=== PATIENT | female | born 1965 ===

== ENCOUNTER 2018-04-07 19:28 | Inpatient (IN) | payer MEDICARE ==
--- NOTE | 2018-04-07 20:45 | ED PDOC ---
HPI: Psych/Substance Abuse Time Seen by Provider: 04/07/18 19:47 Chief Complaint (Nursing): Psychiatric Evaluation Chief Complaint (Provider): depression History/Exam Limitations: no limitations Onset/Duration Of Symptoms: Gradual (2 days) Additional Complaint(s): pt reports feeling upset when she got into argument with family member. When asked if she is suicidal she reports she does not know. Denies homicidal ideations or hallucinations. Past Medical History Reviewed: Historical Data, Nursing Documentation, Vital Signs Vital Signs: Last Vital Signs Temp 98.9 F 04/07/18 19:33 Pulse 79 04/07/18 19:33 Resp 16 04/07/18 19:33 BP 143/90 04/07/18 19:33 Pulse Ox 97 04/07/18 19:33 - Medical History PMH: Anemia, Bipolar Disorder, Depression, Hypothyroidism - Surgical History Surgical History: Cholecystectomy, Other surgeries: Gastric bypass - Family History Family History: States: Unknown Family Hx - Social History Drugs: Denies - Home Medications Home Medications: Ambulatory Orders Medication Instructions Recorded Levothyroxine [Synthroid] 75 mcg PO DAILY 04/07/18 Oxycodone HCl/Acetaminophen 1 each PO BID 04/07/18 [Percocet 10-325 mg Tablet] Quetiapine Fumarate [Quetiapine 400 mg PO HS 04/07/18 Fumarate ER] Ranitidine HCl [Zantac] 150 mg PO DAILY 04/07/18 Temazepam [Restoril] 15 mg PO HS 04/07/18 Trazodone HCl 150 mg PO HS 04/07/18 clonazePAM [Klonopin] 1 mg PO BIDHS 04/07/18 Citalopram [celEXA] 40 mg PO DAILY 04/08/18 Citalopram [celEXA] 20 mg PO DAILY tab 04/09/18 QUEtiapine [SEROquel] 400 mg PO HS tab 04/09/18 Temazepam [Restoril] 15 mg PO HS cap 04/09/18 clonazePAM [Klonopin] 1 mg PO BID tab 04/09/18 lamoTRIgine [Lamictal] 25 mg PO DAILY tab 04/09/18 lamoTRIgine [Lamictal] 100 mg PO DAILY tab 04/09/18 traZODone [Desyrel] 150 mg PO HS tab 04/09/18 - Allergies Allergies/Adverse Reactions: Allergies Allergy/AdvReac Type Severity Reaction Status Date / Time buspirone [From BuSpar] Allergy SHORTNESS Verified 04/08/18 02:38 OF BREATH Review of Systems ROS Statement: Except As Marked, All Systems Reviewed And Found Negative (and as per HPI) Psych: Positive for: Anxiety, Depression Physical Exam - Reviewed Nursing Documentation Reviewed: Yes Vital Signs Reviewed: Yes - Physical Exam Appears: Positive for: Non-toxic, In Acute Distress (psychiatric distress, tearful) Head Exam: Positive for: ATRAUMATIC, NORMOCEPHALIC Skin: Positive for: Warm, Dry Eye Exam: Positive for: EOMI, PERRL ENT: Negative for: Pharyngeal Erythema, Tonsillar Exudate Neck: Positive for: Painless ROM, Supple Cardiovascular/Chest: Positive for: Regular Rate, Rhythm. Negative for: Murmur Respiratory: Positive for: Normal Breath Sounds. Negative for: Wheezing Gastrointestinal/Abdominal: Positive for: Soft. Negative for: Tenderness Back: Positive for: Normal Inspection. Negative for: Decreased ROM Extremity: Positive for: Normal ROM. Negative for: Deformity Lymphatic: Negative for: Adenopathy Neurologic/Psych: Positive for: Alert, Oriented (x3), Mood/Affect (sad and anxious mood and depressed affect). Negative for: Motor/Sensory Deficits - Laboratory Results Result Diagrams: 04/07/18 22:15 04/07/18 22:15 - ECG O2 Sat by Pulse Oximetry: 97 Pulse Ox Interpretation: Normal - Progress ED Course And Treament: Evaluated by CW and pt to be hospitalized for psychiatric stabilization Pt is medically stable for inpatient psychiatric admission Disposition - Clinical Impression Clinical Impression: Depression - Disposition Disposition Time: 23:30 Condition: STABLE - Pt Status Changed To: Hospital Disposition Of: Inpatient - Admit Certification Admit to Inpatient:: After my assessment, the patient will require hospitalization for at least two midnights. This is because of the severity of symptoms shown, intensity of services needed, and/or the medical risk in this patient being treated as an outpatient. - POA Present On Arrival: None
[2018-04-07 22:35] LABS: BASO # 0.1 K/uL (0.0-0.2); EOS # 0.1 K/uL (0.0-0.7); EOS % 0.8 % (0.0-4.0); HEMOGLOBIN 10.1 g/dL (12.0-16.0); LYMPH # 3.3 K/uL (1.0-4.3); LYMPH % 50.5 % (20.0-40.0); MEAN CELL VOLUME 75.2 fl (81.0-99.0); MEAN CORPUSCULAR HEMOGLOBIN 23.5 pg (27.0-31.0); MEAN CORPUSCULAR HGB CONC 31.2 g/dL (33.0-37.0); MEAN PLATELET VOLUME 7.7 fl (7.2-11.7); MONO # 0.3 K/uL (0.0-0.8); MONO % 4.4 % (0.0-10.0); NEUT # 2.9 K/uL (1.8-7.0); NEUT % 43.3 % (50.0-75.0); NRBC % 0.1 % (0.0-0.0); RBC 4.28 Mil/uL (3.80-5.20); RED CELL DISTRIBUTION WIDTH 17.4 % (11.5-14.5); WHITE BLOOD COUNT 6.6 K/uL (4.8-10.8)
[2018-04-07 22:48] LABS: ALB/GLOB RATIO 1.1 (1.0-2.1); ALBUMIN 4.1 g/dL (3.5-5.0); ALT/SGPT 26 U/L (9-52); AST/SGOT 42 U/L (14-36); BLOOD UREA NITROGEN 9 mg/dl (7-17); CALCIUM 9.2 mg/dL (8.4-10.2); GFR AFRICAN-AMERICAN > 60; GFR NON-AFRICAN AMERICAN > 60
[2018-04-07 22:49] LABS: SALICYLATE < 1.0 mg/dl
[2018-04-07 23:00] LABS: BARBITURATES, UR NEGATIVE (NEGATIVE); BENZODIAZEPINES, UR NEGATIVE (NEGATIVE); OPIATES, UR NEGATIVE (NEGATIVE); PHENCYCLIDINE, UR NEGATIVE (NEGATIVE)
[2018-04-08] MEDS ORDERED: Alum-Mag Hydrox-Simethicone Susp (30 mL) PO PRN (00:52)
[2018-04-08] MEDS ORDERED: Magnesium Hydroxide Susp 30 ml UD PO PRN (00:52)
[2018-04-08] MEDS ORDERED: DiphenhydrAMINE 50 mg/ml Inj IM PRN (00:52)
--- NOTE | 2018-04-08 01:01 | PCM.BM ---
<Racquel Rico - Last Filed: 04/08/18 01:01> Treatment Plan Problems - Problems identified on initial assessmt Hopelessness/Helplessness Date Initiated: 04/08/18 Time Initiated: 01:01 Assessment reference: NA Status: Active Treatment assets and liabiliti Patient Assests: cooperative, educated, ADL independent, negotiates basic needs , cognitively intact Patient Liabilities: live alone, financial problems, poor support system, relationship conflicts, language/speech - Milieu Protocol Maintain good personal hygiene: daily Encourage regular showers, daily Remind patient to perform daily oral care, daily Assist patient to perform ADL's Conduct patient checks and document Observation sheet: Q15 minutes Maintain personal safety: every shift Educate patient to report safety concerns to staff, every shift Monitor environment for contraband/sharps Medication safety: Monitor for expected outcome, potential side effects: every shift, Assess barriers to learning: every shift, Assess readiness for medication education: every shift <Meaghan Noel - Last Filed: 04/09/18 11:06> - Diagnosis (1) Depression Status: Acute Interventions: psychotherapy , pharmacotherapy 04/09/18 11:06 <Dary Ma - Last Filed: 04/09/18 13:38> Treatment assets and liabiliti Patient Assests: adapts well, cooperative, educated, resourceful, self-reliant, ADL independent, negotiates basic needs, cognitively intact Patient Liabilities: live alone (homeless), financial problems, poor support system, relationship conflicts, medical problems, language/speech Family Contact Family involvement: Family/SO is involved Family contact: Patient agrees to contact, Family has been contacted by patient , Telephone contact initiated by staff Family contact name: Tammi [phone] Family contact comment: Intellectual Property Legal Assistant placed call to patients daughter (Tammi ) to discuss patients progress on 3NP and anticipated AMA discharge of 04/09. Intellectual Property Legal Assistant notified family that patient was encouraged to remain on 3NP for further medication management but pt. declined. Intellectual Property Legal Assistant explained that due to lack of acute psychiatric sxs, pt. is not considered a risk to self or others and is not appropriate for screening and will be discharged AMA. Importance of compliance with medications and aftercare ([facility]) emphasized. Pts daughter expressed understanding of the above and denied having concerns regarding pts discharge, stating She goes through some depression sometimes but comes out of it. It passed. Shes okay. Daughter confirmed that pt. will be allowed back in the home during the day. - Outside Agency Agency 1 Care involvment: Following patient during stay, Information-sharing, Other Agency contact name: [facility] Agency contact number: [phone] - Goals for Treatment Patient goals for treatment: Patient to continue stabilization on 3NP through medication management and group/supportive therapy to address sxs of depression and eliminate SI. Patient to be encouraged to attend groups regularly to promote self-awareness, compliance, sobriety and improve insight, coping skills and self-esteem. Patient to be provided with referral for appropriate level of aftercare to reduce risk of future hospitalizations and ensure safety in the community. Discharge/Continuing Care - Education Needs Education Needs: Family Medication, Family Aftercare Safety Plan, Patient Medication, Patient Coping Skills, Patient Community resources, Patient Aftercare Safety Plan - Discharge Discharge Criteria: Tolerates medication w/o severe side effects, Free of Suicidal thoughts, Normal sleep pattern, Ability to care for self, Reduction of target symptoms Discharge to:: [facility] - Treatment Team Participation Patient/Family/SO Statement: 04/09/18 13:38 Patient attended tx team on the morning of 04/08 and was able to engage in discussion regarding progress on 3NP and tx goals. Pt. depressed but calm and cooperative. Intellectual Property Legal Assistant served as an traveling engineer and necessary collateral information was obtained. Pt. AOX4 with constricted affect and fair eye contact. Pt. appropriately tearful when discussing homelessness and discord with family. Thoughts: clear and connected. Speech: somewhat hyperverbal. Pt. denied SI/HI and was able to contract for safety on 3NP. Pt. visible on 3NP and observed socializing appropriately with peers. Risks of inappropriate high dosages of medication and benefits of consolidating medication regimen explained. Pt. easily irritable and resistant to recommended medication changes , explaining that current medication regimen has been the most successful. Pt. requested to return to [facility] upon d/c and provided consent for bond underwriter to contact daughter. Discussed with Family/SO: Yes Was Patient/Family/SO present at Treatment Team Meeting: Yes
--- NOTE | 2018-04-08 08:32 | RAD ---
HISTORY: depression COMPARISON: No prior. FINDINGS: LUNGS: Particular tissue left perihilar region with remaining lung richardson clear. No alveolar disease bilaterally. PLEURA: No significant pleural effusion identified, no pneumothorax apparent. CARDIOVASCULAR: Normal. OSSEOUS STRUCTURES: No significant abnormalities. VISUALIZED UPPER ABDOMEN: Normal. OTHER FINDINGS: Bilateral breast implantation incidentally noted. IMPRESSION: Limited fibrotic changes at the left perihilar region. There is an cyst may reflect limited atypical interstitial pulmonary disease. Clinically correlate further. No acute cardiovascular disease appreciable.
[2018-04-08 09:13] VITALS: RESP 18
[2018-04-08 10:00] LABS: T4 3.88 ug/dl (5.5-11.0)
[2018-04-08] MEDS ORDERED: Pneumococcal 23-Valent Vaccine IM ONE (10:00)
--- NOTE | 2018-04-08 12:30 | CP.PCM.CON ---
History of Present Illness - History of Present Illness History of Present Illness: 52 y/o female with PMH Bipolar disorder,Hypothyroidism, Anemia, low calcium levels , osteoporosis?, history gastric bypass surgery in 2006 brought for crisis eval for symptoms of depression, feeling tearful, helpless and suicidal . History obtained from patient . As per patient she has been diagnosed with bipolar disorder a long time ago and has been on multiple medications and currently was taking, Trazodone, Celexa, Clonipine ,lamictal. She states that is very compliant with her meds . As per patient she merida a conflict with er daughter over some bank account and she started feeling very depressed , helpless, sad and was seen crying in retirement. She was brought to ER for crisis eval.Denies suicidal ideation at present but has history of 7 prior attempts and 3 prior hospitalizations.Denies any hallucinations. Medicine consult called for medical management. She denies any chest pain , SOB , palpitations, PND, orthopnea, urinary symptoms, abdominal pain, weight gain or weight loss. She has history of hypothyroidism and recently was found to have uncontrolled hypothyroidism and Synthroid dose was increased to 88 mcg States that has multiple herniated discs in the cervical and lumbar spine and takes Percoset PRn for pain Allergies : Buspirone PMH ; Bipolar disorder,Hypothyroidism, Anemia, low calcium , multiple fractures -- ledrt distal radius fracture, right hand fifth finger fracture, right ankle and left foot fracture ?/ Medications; See med rec Surgery :c- section x 2, Cholecystectomy, gastric bypass surgery in 2006 Family history ; None Social history ; originally from [place], Lives in [facility] , has 3 children, denies any smoking, ETOH or drug abuse, disabled , single ROS ;complains of neck, shoulder pain Review of Systems - Review of Systems All systems: reviewed and no additional remarkable complaints except Past Patient History - Infectious Disease Hx of Infectious Diseases: None - Tetanus Immunizations Tetanus Immunization: Unknown - Past Medical History & Family History Past Medical History?: Yes - Past Social History Smoking Status: Unknown If Ever Smoked Chewing Tobacco Use: No Cigar Use: No Alcohol: Occasional Drugs: Denies Home Situation {Lives}: Homeless Domestic Violence: Negative - CARDIAC Hx Cardiac Disorders: No Hx Hypertension: No - PULMONARY Hx Respiratory Disorders: No Hx Tuberculosis: No - NEUROLOGICAL Hx Seizures: Yes (after stopping Xanax abruptly at age 46) - HEENT Hx Glaucoma: Yes (R eye) Other/Comment: L eye Myopia - RENAL Hx Chronic Kidney Disease: No - ENDOCRINE/METABOLIC Hx Endocrine Disorders: No Hx Hypothyroidism: Yes - HEMATOLOGICAL/ONCOLOGICAL Hx Blood Disorders: No - INTEGUMENTARY Hx Dermatological Problems: No - MUSCULOSKELETAL/RHEUMATOLOGICAL Hx Musculoskeletal Disorders: Yes Hx Fractures: Yes (L Wrist Fx, R washer hand digit Fx 2017, Fx both ankles) Hx Osteoporosis: Yes - GASTROINTESTINAL Hx Gall Bladder Disease: Yes Hx Gastroesophageal Reflux: Yes - GENITOURINARY/GYNECOLOGICAL Hx Genitourinary Disorders: No Hx Sexually Transmitted Disorders: No - PSYCHIATRIC Hx Anxiety: Yes Hx Bipolar Disorder: Yes Hx Depression: Yes Hx Substance Use: No - SURGICAL HISTORY Hx Section: Yes (x 2) Hx Cholecystectomy: Yes Hx Gastric Bypass Surgery: Yes (2006) Other/Comment: Breast Reconstruction/Lift in 2007 - ANESTHESIA Hx Anesthesia: Yes Hx Anesthesia Reactions: No Hx Malignant Hyperthermia: No Has any member of the family had a problem w/ anesthesia?: No Meds Allergies/Adverse Reactions: Allergies Allergy/AdvReac Type Severity Reaction Status Date / Time buspirone [From BuSpar] Allergy SHORTNESS Verified 04/08/18 02:38 OF BREATH - Medications Medications: Current Medications Acetaminophen (Tylenol 325mg Tab) 650 mg PO Q4 PRN PRN Reason: pain level 4-7 Al Hydrox/Mg Hydrox/Simethicone (Maalox Plus 30 Ml) 30 ml PO Q4 PRN PRN Reason: Dyspepsia Diphenhydramine HCl (Benadryl) 50 mg IM Q6 PRN PRN Reason: Extrapyramidal S/S Unable PO Diphenhydramine HCl (Benadryl) 50 mg PO Q6 PRN PRN Reason: Extrapyramidal Symptoms Haloperidol (Haldol) 5 mg PO Q4 PRN PRN Reason: Agitation Haloperidol Lactate (Haldol) 5 mg IM Q4 PRN PRN Reason: Agitation, Unable to Take PO Lorazepam (Ativan) 2 mg IM Q4 PRN PRN Reason: Anxiety/Agitation,Unable PO Lorazepam (Ativan) 2 mg PO Q4 PRN PRN Reason: Anxiety/Agitation Last Admin: 04/08/18 01:50 Dose: 2 mg Magnesium Hydroxide (Milk Of Magnesia) 30 ml PO HS PRN PRN Reason: Constipation Trazodone HCl (Desyrel) 50 mg PO HS PRN PRN Reason: for insomnia Last Admin: 04/08/18 01:50 Dose: 50 mg Physical Exam - Constitutional Appears: Non-toxic, No Acute Distress - Head Exam Head Exam: ATRAUMATIC, NORMAL INSPECTION, NORMOCEPHALIC - Eye Exam Eye Exam: EOMI, Normal appearance, PERRL Pupil Exam: NORMAL ACCOMODATION - ENT Exam ENT Exam: Mucous Membranes Moist, Normal Exam - Neck Exam Neck exam: Positive for: Full Rom, Normal Inspection - Respiratory Exam Respiratory Exam: Clear to Auscultation Bilateral, NORMAL BREATHING PATTERN. absent: Rales, Rhonchi, Wheezes - Cardiovascular Exam Cardiovascular Exam: REGULAR RHYTHM, RRR, +S1, +S2. absent: JVD - GI/Abdominal Exam GI & Abdominal Exam: Normal Bowel Sounds, Soft. absent: Distended, Guarding, Rebound, Tenderness - Rectal Exam Rectal Exam: Deferred - Extremities Exam Extremities exam: Positive for: normal capillary refill, normal inspection, pedal pulses present. Negative for: calf tenderness, pedal edema - Back Exam Back exam: NORMAL INSPECTION - Neurological Exam Neurological exam: Alert, CN II-XII Intact, Oriented x3 - Psychiatric Exam Psychiatric exam: Anxious, Flat Affect - Skin Skin Exam: Dry, Normal Color, Warm Results - Vital Signs Recent Vital Signs: Last Vital Signs Temp 98.2 F 04/08/18 09:00 Pulse 77 04/08/18 09:00 Resp 18 04/08/18 09:00 BP 149/93 H 04/08/18 09:00 Pulse Ox 99 04/07/18 23:51 - Labs Result Diagrams: 04/07/18 22:15 04/07/18 22:15 Labs: Laboratory Results - last 24 hr 04/07/18 04/07/18 04/07/18 22:15 22:15 22:15 WBC 6.6 RBC 4.28 Hgb 10.1 L Hct 32.2 L MCV 75.2 L MCH 23.5 L MCHC 31.2 L RDW 17.4 H Plt Count 325 MPV 7.7 Neut % (Auto) 43.3 L Lymph % (Auto) 50.5 H Sunflower % (Auto) 4.4 Eos % (Auto) 0.8 Baso % (Auto) 1.0 Neut # (Auto) 2.9 Lymph # (Auto) 3.3 Sunflower # (Auto) 0.3 Eos # (Auto) 0.1 Baso # (Auto) 0.1 Sodium 140 Potassium 3.9 Chloride 104 Carbon Dioxide 20 L Anion Gap 20 BUN 9 Creatinine 0.7 Est GFR ( Amer) > 60 Est GFR (Non-Af Amer) > 60 Random Glucose 127 H Calcium 9.2 Phosphorus 3.9 Magnesium 1.9 Total Bilirubin 0.2 AST 42 H ALT 26 Alkaline Phosphatase 67 Total Protein 7.9 Albumin 4.1 Globulin 3.8 Albumin/Globulin Ratio 1.1 Triglycerides Cholesterol LDL Cholesterol Direct HDL Cholesterol Thyroxine (T4) TSH 3rd Generation 7.99 H Salicylates < 1.0 Urine Opiates Screen Urine Methadone Screen Acetaminophen 10.0 Ur Barbiturates Screen Ur Phencyclidine Scrn Ur Amphetamines Screen U Benzodiazepines Scrn U Oth Cocaine Metabols U Cannabinoids Screen Alcohol, Quantitative 59 H 04/07/18 04/08/18 22:15 09:11 WBC RBC Hgb Hct MCV MCH MCHC RDW Plt Count MPV Neut % (Auto) Lymph % (Auto) Sunflower % (Auto) Eos % (Auto) Baso % (Auto) Neut # (Auto) Lymph # (Auto) Sunflower # (Auto) Eos # (Auto) Baso # (Auto) Sodium Potassium Chloride Carbon Dioxide Anion Gap BUN Creatinine Est GFR ( Amer) Est GFR (Non-Af Amer) Random Glucose Calcium Phosphorus Magnesium Total Bilirubin AST ALT Alkaline Phosphatase Total Protein Albumin Globulin Albumin/Globulin Ratio Triglycerides 73 Cholesterol 135 LDL Cholesterol Direct 48 HDL Cholesterol 55 Thyroxine (T4) 3.88 L TSH 3rd Generation 16.50 H Salicylates Urine Opiates Screen Negative Urine Methadone Screen Negative Acetaminophen Ur Barbiturates Screen Negative Ur Phencyclidine Scrn Negative Ur Amphetamines Screen Negative U Benzodiazepines Scrn Negative U Oth Cocaine Metabols Negative U Cannabinoids Screen Negative Alcohol, Quantitative Assessment & Plan - Assessment and Plan (Free Text) Assessment: 52 y/o female with PMH Bipolar disorder,Hypothyroidism, Anemia, low calcium levels , osteoporosis?, history gastric bypass surgery in 2006 brought for crisis eval for symptoms of depression, feeling tearful, helpless and suicidal . History obtained from patient . As per patient she has been diagnosed with bipolar disorder a long time ago and has been on multiple medications and currently was taking, Trazodone, Celexa, Clonipine ,lamictal. She states that is very compliant with her meds . As per patient she merida a conflict with er daughter over some bank account and she started feeling very depressed , helpless, sad and was seen crying in retirement. She was brought to ER for crisis eval.Denies suicidal ideation at present but has history of 7 prior attempts and 3 prior hospitalizations.Denies any hallucinations. Medicine consult called for medical management. She denies any chest pain , SOB , palpitations, PND, orthopnea, urinary symptoms, abdominal pain, weight gain or weight loss. She has history of hypothyroidism and recently was found to have uncontrolled hypothyroidism and Synthroid dose was increased to 88 mcg States that has multiple herniated discs in the cervical and lumbar spine and takes Percoset PRn for pain 1. Bipolar disorder with depression management as per psych TSH elevated 16.5. will need to increase Synthroid dose to 100 mcg 2. Hypothyroidism uncontrolled while on Synthroid 75 mcg TSH 16 increase dose to 100 mcg daily. patient refuses gheneric form of Levothyroxine because of severe side effects. Patient tpo take her own medication 3.Anemia chronic check iron levels given her history of gastric bypass and Vitamin B12
--- NOTE | 2018-04-08 16:03 | PCM.PSYCH ---
Initial Psychiatric Evaluation - Initial Psychiatric Evaluation Type of Admission: Voluntary Legal Status: Capacity Chief Complaint (in patient's own words): I am tired of living like that Patient's Reaction to Hospitalization: pt requested help History of Present Illness and Precipitating Events: pt is 52 ys old female with previous psychiatric diagnosis of bipolar disorder , pt has at least three previous hospitalizations and 7 suicidal attempts, she has moved from [place] since last January, pt has been following with [facility] program, for past few weeks has been feeling increasingly depressed due to increased conflict with her daughter, as a result pt had to stay in a halfway, started feeling hopeless and helpless unable to handle financial difficulties and feeling unsupported by her two daughters, on day of evaluation she started experiencing suicidal ideation with plan to overdose on medications, pt continues to be tearful and depressed on the unit with passive suicidal ideation but no active plan on the unit, reported decreased sleep and decreased appetite , denied homicidal ideation, denied substance use , Current Medications: Active Medications Generic Name Dose Route Start Last Admin Trade Name Freq PRN Reason Stop Dose Admin Acetaminophen 650 mg 04/08/18 00:52 Tylenol 325mg Tab PO Q4 PRN pain level 4-7 Al Hydrox/Mg Hydrox/Simethicone 30 ml 04/08/18 00:52 Maalox Plus 30 Ml PO Q4 PRN Dyspepsia Citalopram Hydrobromide 20 mg 04/09/18 09:00 Celexa PO DAILY KRISSY Clonazepam 1 mg 04/08/18 17:00 Klonopin PO BID KRISSY Diphenhydramine HCl 50 mg 04/08/18 00:52 Benadryl IM Q6 PRN Extrapyramidal S/S Unable PO Diphenhydramine HCl 50 mg 04/08/18 00:52 Benadryl PO Q6 PRN Extrapyramidal Symptoms Haloperidol 5 mg 04/08/18 00:52 Haldol PO Q4 PRN Agitation Haloperidol Lactate 5 mg 04/08/18 00:52 Haldol IM Q4 PRN Agitation, Unable to Take PO Lamotrigine 100 mg 04/09/18 09:00 Lamictal PO DAILY KRISSY Lamotrigine 25 mg 04/09/18 09:00 Lamictal PO DAILY KRISSY Levothyroxine Sodium 50 mcg 04/09/18 06:30 Synthroid PO DAILY@0630 KRISSY Lorazepam 2 mg 04/08/18 00:52 Ativan IM Q4 PRN Anxiety/Agitation,Unable PO Lorazepam 2 mg 04/08/18 00:52 04/08/18 01:50 Ativan PO 2 mg Q4 PRN Administration Anxiety/Agitation Magnesium Hydroxide 30 ml 04/08/18 00:52 Milk Of Magnesia PO HS PRN Constipation Quetiapine Fumarate 400 mg 04/08/18 22:00 Seroquel PO HS [facility] Temazepam 15 mg 04/08/18 22:00 Restoril PO HS KRISSY Trazodone HCl 150 mg 04/08/18 22:00 Desyrel PO HS [facility] Past Psychiatric History - Past Psychiatric History Explanation of prior treatment: multiple hospitalizations, previous suicidal attempts by overdose and trying to hang herself History of ETOH/Drug Use: denied History of Family Illness: two brothers committed suicide Pertinent Medical Hx (Current Medical&Sleep Prob, Allergies): Allergies Allergy/AdvReac Type Severity Reaction Status Date / Time buspirone [From BuSpar] Allergy SHORTNESS Verified 04/08/18 02:38 OF BREATH Levothyroxine [Synthroid] 75 mcg PO DAILY 04/07/18 Oxycodone HCl/Acetaminophen [Percocet 10-325 mg Tablet] 1 each PO BID 04/07/18 Quetiapine Fumarate [Quetiapine Fumarate ER] 400 mg PO HS 04/07/18 Ranitidine HCl [Zantac] 150 mg PO DAILY 04/07/18 Temazepam [Restoril] 15 mg PO HS 04/07/18 Trazodone HCl 150 mg PO HS 04/07/18 clonazePAM [clonAZEPAM] 1 mg PO BIDHS 04/07/18 lamoTRIgine [LaMICtal] 100 mg PO DAILY 04/07/18 Citalopram [celeXA] 40 mg PO DAILY 04/08/18 Mental Status Examination - Personal Presentation Personal Presentation: Looks older than stated age - Affect Affect: Constricted, Depressed - Motor Activity Motor Activity: Psychomotor Retardation - Reliability in Providing Information Reliability in Providing Information: Poor, due to altered mood - Speech Speech: Relevant - Mood Mood: Depressed, Anxious - Formal Thought Process Formal Thought Process: Circumstantial - Hallucinations/Delusions Additional comments: denied perceptual disturbances, non elicited - Obsessions/Compulsions Obsessions: No Compulsions: No - Cognitive Functions Orientation: Person, Place, Situation Sensorium: Alert Attention/Concentration: Attentive Judgement: Imparied, as evidence by: Poor judgement - Risk Risk: Suicidal, Diminished functioning - Strength & Assets Inventory Strength & Assets Inventory: Education, Life experience - Limitations Additional comments: poor social support DSM 5 DX - DSM 5 DSM 5 Diagnosis: bipolar I disorder MRE depressed severe - Recommended/Plan of Treatment Treatment Recommendations and Plan of Treatment: start pt on celexa 20mg , as she was on 40mg with plan to discontinue lamictal 125mg seroquel 400mg qhs temazepam 15mg qhs klonopin 1mg bid trazodone 150mg qhs CBT group and supportive therapy
--- NOTE | 2018-04-08 22:40 | CARD ---
APPROVED REPORT EKG Measurement Heart [id number] <Conclusion> Normal sinus rhythm Normal ECG
[2018-04-09] MEDS: Levothyroxine 50 MCG TAB PO SCH ×2 (06:55→06:56)
[2018-04-09] MEDS ORDERED: Levothyroxine 100 MCG TAB PO SCH (09:00)
[2018-04-09 09:32] VITALS: BP 104/62; PULSE 73; TEMP 97.2
--- NOTE | 2018-04-09 11:28 | PCM.PYCHDC ---
Mental Status Examination - Mental Status Examination Orientation: Person Memory: Intact Mood: Neutral Affect: Constricted Speech: Appropriate Attention: WNL Concentration: WNL Association: WNL Fund of Knowledge: WNL Description of patient's judgement and insight: partial insight fair judgment Psychotic Thoughts and Behaviors: pt denied any current psychotic symptoms, non elicited Suicidal Ideation: No Current Homicidal Ideation?: No Discharge Summary - Discharge Note Reason for Hospitalization: pt requested help pt is 52 ys old female with previous psychiatric diagnosis of bipolar disorder , pt has at least three previous hospitalizations and 7 suicidal attempts, she has moved from [place] since last January, pt has been following with [facility] program, for past few weeks has been feeling increasingly depressed due to increased conflict with her daughter, as a result pt had to stay in a retirement, started feeling hopeless and helpless unable to handle financial difficulties and feeling unsupported by her two daughters, on day of evaluation she started experiencing suicidal ideation with plan to overdose on medications, pt continues to be tearful and depressed on the unit with passive suicidal ideation but no active plan on the unit, reported decreased sleep and decreased appetite , denied homicidal ideation, denied substance use , Laboratory Data: Abnormal Lab Results 04/08/18 04/08/18 09:11 09:11 Hemoglobin A1c 5.6 RPR Nonreactive Consultations:: List each consultation separately and include: 1. Reason for request. 2. Findings. 3. Follow-up Summary of Hospital Course include:: 1. Description of specific treatment plan utilized for patients during their course of treatmen. 2. Summarize the time- course for resolution of acute symptoms and/or regressed behaviors. 3. Describe issues identified and worked on during hospitalization. 4. Describe medication utilized. 5. Describe medical problems identified and treated. 6. Reassessment of suicide risk Summary of Hospital Course: pt on admission was presenting with depressed mood related mainly to conflict she had with her daughter pt was replaced on her medications, with gradual increase in lamictal of 25mg , pt on second day of admission requested to be discharged against medical advise , pt denied any current suicidal or homicidal ideation , denied perceptual disturbances , non elicited ,communicated with daughter pankaj [phone], had no concerns in reference to pt current mental status pt was advised about the benefit of continuing treatment for adjusting medications , pt declined pt at current mental status not danger to self or others and will be discharged against medical advise - Diagnosis (1) Depression Current Visit: Yes Status: Acute - Final Diagnosis (DSM 5) Condition upon Discharge: FAIR DSM 5: bipolar I disorder MRE depressed Disposition: AGAINST MEDICAL ADVICE - Antipsychotic Medications Pt discharged on 2 or more routine antipsychotic medications: No
[2018-04-11 20:41] VITALS: O2SAT 97
== END 2018-04-09 12:02 | disposition left against medical advice (07) | DRG 885 ==
LOC: H.ER 19:28 → H.ERHOLD 23:02 → H.PSYCH 04-08 00:49
PROVIDERS: ADMIT Psychiatry & Neurology Psychiatry; ATTEND Psychiatry & Neurology Psychiatry
PROC: GZHZZZZ Group Psychotherapy (ICD-10-PCS; principal; 2018-04-07)
PROC: GZ56ZZZ Individual Psychotherapy, Supportive (ICD-10-PCS; 2018-04-07)
DX: F31.9 Bipolar disorder, unspecified (principal); H40.9 Unspecified glaucoma; K21.9 Gastro-esophageal reflux disease without esophagitis; M81.0 Age-related osteoporosis without current pathological fracture; Z59.0 Homelessness; Z90.49 Acquired absence of other specified parts of digestive tract; Z98.84 Bariatric surgery status; F41.9 Anxiety disorder, unspecified; K82.9 Disease of gallbladder, unspecified; R56.9 Unspecified convulsions; D64.9 Anemia, unspecified; E03.9 Hypothyroidism, unspecified

== ENCOUNTER 2018-07-21 12:59 | Emergency (ER) | payer MEDICARE ==
--- NOTE | 2018-07-21 13:33 | ED PDOC ---
HPI: Dental Pain/Injury Time Seen by Provider: 07/21/18 13:14 Chief Complaint (Nursing): Dental Pain Chief Complaint (Provider): dental pain History Per: Patient Additional Complaint(s): 53 year old female presents to the ED complaining of dental pain that radiates to her right ear and right side of her neck ongoing for 1 week. Patient reports she has an appointment with her dentist next Sunday, but due to increased pain she came to the ED. She took anaprox, Tylenol, and aspirin with minimal relief. Patient was started on levaquin for dental issues 5 days ago. She denies fever or chills. Patient is tolerating liquids and solids. 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 digit Fx 2017, Fx both ankles), Hypothyroidism, Osteoporosis, Seizures (after stopping Xanax abruptly at age 46) - Surgical History Surgical History: Cholecystectomy, - Family History Family History: States: No Known Family Hx - Social History Current smoker - smoking cessation education provided: No Alcohol: None Drugs: Denies - Home Medications Home Medications: Ambulatory Orders Medication Instructions Recorded Levothyroxine [Synthroid] 75 mcg PO DAILY 04/07/18 Oxycodone HCl/Acetaminophen 1 each PO BID 04/07/18 [Percocet 10-325 mg Tablet] Quetiapine Fumarate [Quetiapine 400 mg PO HS 04/07/18 Fumarate ER] Ranitidine HCl [Zantac] 150 mg PO DAILY 04/07/18 Temazepam [Restoril] 15 mg PO HS 04/07/18 Trazodone HCl 150 mg PO HS 04/07/18 clonazePAM [Klonopin] 1 mg PO BIDHS 04/07/18 Citalopram [celEXA] 40 mg PO DAILY 04/08/18 Citalopram [celEXA] 20 mg PO DAILY tab 04/09/18 QUEtiapine [SEROquel] 400 mg PO HS tab 04/09/18 Temazepam [Restoril] 15 mg PO HS cap 04/09/18 clonazePAM [Klonopin] 1 mg PO BID tab 04/09/18 lamoTRIgine [Lamictal] 25 mg PO DAILY tab 04/09/18 lamoTRIgine [Lamictal] 100 mg PO DAILY tab 04/09/18 traZODone [Desyrel] 150 mg PO HS tab 04/09/18 - Allergies Allergies/Adverse Reactions: Allergies Allergy/AdvReac Type Severity Reaction Status Date / Time buspirone [From BuSpar] Allergy SHORTNESS Verified 07/21/18 13:22 OF BREATH Review of Systems ROS Statement: Except As Marked, All Systems Reviewed And Found Negative Constitutional: Negative for: Fever, Chills ENT: Positive for: Other (dental pain) Cardiovascular: Negative for: Chest Pain Respiratory: Negative for: Cough Gastrointestinal: Negative for: Nausea, Vomiting Physical Exam - Reviewed Nursing Documentation Reviewed: Yes Vital Signs Reviewed: Yes - Physical Exam Appears: Positive for: Well, Non-toxic, No Acute Distress Head Exam: Positive for: ATRAUMATIC, NORMAL INSPECTION, NORMOCEPHALIC Skin: Positive for: Normal Color, Rash Eye Exam: Positive for: Normal appearance ENT: Positive for: Other (Multiple dental caries, multiple missing teeth, overal poor dentition, no abscess noted, airway patent, uvula midline) Neck: Positive for: Normal. Negative for: Pain On Movement Of Neck Cardiovascular/Chest: Positive for: Regular Rate, Rhythm Respiratory: Positive for: Normal Breath Sounds Extremity: Positive for: Normal ROM (upper and lower) Neurologic/Psych: Positive for: Alert, Oriented - ECG O2 Sat by Pulse Oximetry: 99 (RA) Pulse Ox Interpretation: Normal Medical Decision Making Medical Decision Making: Time: 1326 Initial Impression: Dental pain Initial Plan: --Tramadol 50 mg PO --Motrin 600 mg PO Patient refused meds in ED and left before treatment complete. Scribe Attestation: Documented by Munira Power, acting as a scribe for Lilly Girard PA-C. Provider Scribe Attestation: All medical record entries made by the Scribe were at my direction and personally dictated by me. I have reviewed the chart and agree that the record accurately reflects my personal performance of the history, physical exam, medical decision making, and the department course for this patient. I have also personally directed, reviewed, and agree with the discharge instructions and disposition. Disposition - Clinical Impression Clinical Impression: Dental caries, Pain, dental - Patient ED Disposition Is Patient to be Admitted: No - Disposition Disposition: Left W/O Treatment (Patient left ED before treatment complete) Disposition Time: 13:42 Condition: UNKNOWN
[2018-07-21 15:30] VITALS: BP 140/83; PULSE 67; RESP 17; TEMP 98.1; O2SAT 98
== END 2018-07-21 15:30 | disposition home or self-care (01) ==
LOC: H.ER 12:59
DX: K02.9 Dental caries, unspecified (principal)
CPT/HCPCS: 96372; 99283; J1885